=== PATIENT | female | born 1955 | race Caucasian/White ===

== ENCOUNTER → 2017-12-10 | Outpatient (CLI) | payer BC ==
[2017-12-10 10:01] LABS: BASOPHILS # (AUTO) 0.03 x10^3/uL (0-0.1); BASOPHILS % (AUTO) 0 % (0-1); EOSINOPHILS # (AUTO) 0.12 x10^3/uL (0-0.4); EOSINOPHILS % (AUTO) 1 % (1-7); LYMPHOCYTES # (AUTO) 1.06 x10^3/uL (1-3.4); LYMPHOCYTES % (AUTO) 11 % (22-44); MD NO; MEAN CORPUSCULAR HEMOGLOBIN 33.2 pg (27.0-34.8); MEAN CORPUSCULAR HGB CONC 34.1 g/dL (32.4-35.8); MEAN CORPUSCULAR VOLUME 97.3 fL (80-100); MEAN PLATELET VOLUME 8.4 fL (7.4-10.4); MONOCYTES # (AUTO) 0.52 x10^3/uL (0.2-0.8); MONOCYTES % (AUTO) 5 % (2-9); NEUTROPHILS # (AUTO) 7.97 x10^3/uL (1.8-6.8); NEUTROPHILS % (AUTO) 82 % (42-75); PLATELET COUNT 229 x10^3/uL (130-400); RED CELL DISTRIBUTION WIDTH 12.6 % (9.6-15.2)
[2017-12-10 10:09] LABS: PROTHROMBIN TIME 10.4 Seconds (9.6-11.5)
[2017-12-10 10:12] LABS: ALANINE AMINOTRANSFERASE 30 U/L (12-78); ALBUMIN 4.3 g/dL (3.4-5.0); ANION GAP 8 mmol/L (5-15); CHLORIDE 101 mmol/L (98-107); CREATININE 0.68 mg/dL (0.55-1.02)
[2017-12-10 10:14] LABS: ALKALINE PHOSPHATASE 61 U/L (45-117); BILIRUBIN,TOTAL 0.8 mg/dL (0.2-1.0); TOTAL PROTEIN 7.9 g/dL (6.4-8.2)
[2017-12-10 10:45] LABS: HEMOGLOBIN A1C 5.2 % (4.2-6.3)
== END | disposition home or self-care (01) ==
LOC: STAR 08:48
PROVIDERS: ATTEND Orthopaedic Surgery
DX: Z01.818 Encounter for other preprocedural examination (principal); M17.12 Unilateral primary osteoarthritis, left knee
CPT/HCPCS: 36415; 80053; 83036; 85025; 85610; 85730; 86703; 87081; 87147; 87899; 93005; G0435

== ENCOUNTER 2017-12-15 06:33 | Inpatient (IN) | payer BC ==
[2017-12-10 09:01] VITALS: BP 161/78
[~2017-12-15] VITALS: Ht 167.6 cm; Wt 78.7 kg
[~2017-12-15 06:33] MED LIST: ASCO500T8 PO; ASPI-496 PO; CALC600T4 PO; CELE200C PO; FENTANYL PF 250 MCG/5ML ONE; FERR325T18 PO; LEVO137T3 PO; MIDAZOLAM 1 MG/ML, 2ML ONE; MULT1TAB60 PO; VALS1TAB26 PO; VERA240C2 PO
[2017-12-15] MEDS ORDERED: PROPOFOL 10 MG/ML, 20ML ONE (06:34)
[2017-12-15] MEDS ORDERED: ROCURONIUM 10 MG/ML,10ML ONE (06:35)
[2017-12-15] MEDS ORDERED: GLYCOPYRROLATE 0.4 MG/2 ML, 2ML ONE (06:36)
[2017-12-15] MEDS ORDERED: NEOSTIGMINE 1 MG/ML, 10ML ONE (06:36)
[2017-12-15] MEDS ORDERED: ROPivacaine/PF 0.2%, 10 ML ONE (06:37)
[2017-12-15] MEDS ORDERED: SODIUM CHLORIDE 0.9% 100 ML ONE (06:37)
[2017-12-15] MEDS ORDERED: ONDANSETRON 2MG/ML, 2ML ONE (06:37)
[2017-12-15] MEDS ORDERED: KETOROLAC 60 MG/2 ML ONE (06:37)
[2017-12-15] MEDS ORDERED: TRANEXAMIC ACID 100 MG/ML, 10ML ONE ×4 (06:37)
[2017-12-15] MEDS ORDERED: DEXAMETHASONE 4 MG/ML, 1ML ONE ×2 (06:37)
[2017-12-15] MEDS ORDERED: EPINEPHRINE 1 MG/ML, 1ML ONE (06:38)
[2017-12-15] MEDS ORDERED: ROPIvacaine/PF 0.2%, 20 ML ONE (06:40)
[2017-12-15] MEDS ORDERED: LACTATED RINGERS 1,000 ML IV SCH (06:55)
[2017-12-15] MEDS ORDERED: GABAPENTIN 300 MG CAPSULE PO ONE (07:00)
[2017-12-15] MEDS ORDERED: ACETAMINOPHEN 500 MG TABLET PO ONE (07:00)
[2017-12-15] MEDS ORDERED: LIDOCAINE 1%, 2ML SQ PRN (07:00)
[2017-12-15] MEDS ORDERED: VANCOMYCIN PER PHARMACY MC ONE (07:03)
[2017-12-15] MEDS ORDERED: MUPI22OI2 TP (07:08)
[2017-12-15] MEDS ORDERED: LIDOCAINE 1%, 2ML ONE (07:22)
[2017-12-15] MEDS ORDERED: VANCOMYCIN 1,800 MG in SODIUM CHLORIDE 0.9% 250 ML IV ONE (08:00)
[2017-12-15] MEDS ORDERED: PHENYLEPHRINE 10 MG/ML ONE (08:29)
[2017-12-15] MEDS ORDERED: SCOPOLAMINE PATCH, 1.5MG PATCH.TD72 TD ONE (09:12)
[2017-12-15] MEDS ORDERED: ONDANSETRON 4 MG TABLET PO PRN (09:30)
[2017-12-15] MEDS ORDERED: ALUMINUM/MAG/SIMETHICONE 30 ML UDC PO PRN (09:30)
[2017-12-15] MEDS ORDERED: SENNA/DOCUSATE TABLET PO PRN (09:30)
[2017-12-15] MEDS ORDERED: ACETAMINOPHEN 650 MG/20.3 ML UDC PO PRN (09:30)
[2017-12-15] MEDS ORDERED: MAGNESIUM HYDROXIDE 8%, 30ML UDC PO PRN (09:30)
[2017-12-15] MEDS ORDERED: ONDANSETRON 2MG/ML, 2ML IV PRN (09:30)
[2017-12-15] MEDS ORDERED: HYDROmorphone 1 MG/ML, 1ML IV PRN ×2 (09:30→10:00)
[2017-12-15] MEDS ORDERED: DIPHENHYDRAMINE 50 MG CAPSULE PO PRN (09:30)
[2017-12-15] MEDS ORDERED: TRANEXAMIC ACID 1,000 MG in SODIUM CHLORIDE 0.9% 100 ML IVPB ONE (09:30)
[2017-12-15] MEDS ORDERED: DIAZEPAM 5 MG TABLET PO PRN (09:30)
[2017-12-15] MEDS ORDERED: MEPERIDINE/PF 25MG/0.5ML IVPush PRN (10:00)
[2017-12-15] MEDS ORDERED: OXYcodone 5 MG/5 ML ORAL.SOL UDC PO PRN (10:00)
[2017-12-15] MEDS ORDERED: LABETALOL 5MG/ML, 20ML IV PRN (10:00)
[2017-12-15] MEDS ORDERED: hydrALAzine 20 MG/ML, 1ML IV PRN (10:00)
[2017-12-15] MEDS ORDERED: PROMETHAZINE 25 MG/ML, 1ML IV PRN (10:00)
[2017-12-15] MEDS ORDERED: FENTANYL PF 100 MCG/2ML IV PRN (10:00)
[2017-12-15] MEDS ORDERED: ONDANSETRON 2MG/ML, 2ML IVPush PRN (10:00)
[2017-12-15] MEDS ORDERED: MEPERIDINE/PF 50 MG/ML ONE (11:24)
[2017-12-15] MEDS ORDERED: OXYcodone 5 MG/5 ML ORAL.SOL UDC ONE (11:50)
[2017-12-15] MEDS ORDERED: CEFAZOLIN PMX 1GM/50ML 50 ML IVPB SCH (13:00)
[2017-12-15] MEDS: D5%-0.45NACL+KCL 20MEQ 1,000 ML IV SCH ×2 (13:52→23:00)
[2017-12-15] MEDS: ASPIRIN 81 MG TABLET EC PO SCH (17:14)
[2017-12-15] MEDS: OXYcodone IR 5MG TABLET PO PRN ×2 (17:14→21:37)
[2017-12-15] MEDS: CEFAZOLIN PMX 1GM/50ML 50 ML IVPB SCH (17:15)
[2017-12-15] MEDS ORDERED: VANCOMYCIN PMX 1GM/200ML 200 ML IVPB ONE (20:00)
[2017-12-15 20:10] VITALS: BP 95/53
[2017-12-15] MEDS ORDERED: VERAPAMIL ER 240MG TABLET.ER PO SCH (21:00)
[2017-12-15] MEDS: DOCUSATE 100 MG CAPSULE PO SCH (21:37)
[2017-12-16 00:14] VITALS: BP 98/60
[2017-12-16] MEDS: CEFAZOLIN PMX 1GM/50ML 50 ML IVPB SCH (01:13)
[2017-12-16] MEDS: OXYcodone IR 5MG TABLET PO PRN ×3 (01:44→10:30)
[2017-12-16 03:39] VITALS: BP 114/59
[2017-12-16] MEDS ORDERED: DEXAMETHASONE 4 MG/ML, 1ML IVPush SCH (06:00)
[2017-12-16] MEDS ORDERED: LEVOTHYROXINE 137 MCG TABLET PO SCH (06:00)
[2017-12-16] MEDS: ASPIRIN 81 MG TABLET EC PO SCH (06:01)
[2017-12-16 06:45] VITALS: BP 108/68
[2017-12-16] MEDS ORDERED: ASPI-496 PO (08:57)
[2017-12-16] MEDS ORDERED: DOCU-131 PO (08:59)
[2017-12-16] MEDS ORDERED: ONDA4TAB10 PO (08:59)
[2017-12-16] MEDS ORDERED: CELE100C PO (09:00)
[2017-12-16] MEDS: D5%-0.45NACL+KCL 20MEQ 1,000 ML IV SCH (09:00)
[2017-12-16] MEDS ORDERED: FERROUS SULFATE 325 MG TABLET PO SCH (09:00)
[2017-12-16] MEDS ORDERED: ASCORBIC ACID 500 MG TABLET PO SCH (09:00)
[2017-12-16] MEDS ORDERED: TAMSULOSIN 0.4 MG CAP.ER.24H PO SCH (09:00)
[2017-12-16] MEDS ORDERED: CALCIUM CARBONATE 500 MG TAB.CHEW PO SCH (09:00)
[2017-12-16] MEDS ORDERED: VALSARTAN 160 MG TABLET PO SCH ×2 (09:00)
[2017-12-16] MEDS ORDERED: HYDROCHLOROTHIAZIDE 25 MG TABLET PO SCH ×2 (09:00)
[2017-12-16] MEDS ORDERED: MULTIVITAMIN 1 TABLET PO SCH (09:00)
[2017-12-16] MEDS ORDERED: TRAM50TA2 PO (09:01)
[2017-12-16] MEDS ORDERED: DIAZ5TAB PO (09:01)
[2017-12-16] MEDS ORDERED: OXYC5CAP2 PO (09:02)
[2017-12-16] MEDS ORDERED: KETOROLAC 30 MG/1 ML IV SCH (09:30)
[2017-12-16] MEDS: DOCUSATE 100 MG CAPSULE PO SCH (10:21)
== END 2017-12-16 12:30 | disposition home or self-care (01) | DRG 470 ==
LOC: OUT 06:33 → EDSTATUS 07:30 → ORIP 09:03 → 4NOR 12:47 → DCLOUNGE 12-16 12:17
PROVIDERS: ADMIT Orthopaedic Surgery; ATTEND Orthopaedic Surgery
PROC: 0SRD069 Replacement of Left Knee Joint with Oxidized Zirconium on Polyethylene Synthetic Substitute, Cemented, Open Approach (ICD-10-PCS; principal; 2017-12-15 07:30)
DX: M17.12 Unilateral primary osteoarthritis, left knee (principal)
CPT/HCPCS: 36415; 85014; 85018; C1713; J0171; J0690; J1100; J1885; J2175; J2250; J2405; J2704; J2710; J2795; J3010; J3370; J3490; C1776; J2370; J3480; J7050; J7120